=== PATIENT | female | born 1960 | race Caucasian/White ===

== ENCOUNTER 2023-09-25 11:20 | Outpatient (AMB) | payer OTHER, SELFPAY ==
--- NOTE | 2023-09-25 11:36 | A.OFFPC_ITS ---
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: No Allergies No Known Allergies Allergy (Verified 09/25/23 12:20) Medication List - Last Reconciled 09/25/23 by Barbara Carver PA-C atorvastatin 10 mg PO DAILY levothyroxine 50 mcg PO DAILY lisinopril 10 mg PO DAILY Tobacco use date assessed: 09/25/23 Dental Screening Dental Screen Date: 09/25/23 Did you have a dental visit in the last 12 months?: Yes Did you have a dental problem in the last 6 months where you did not have access to dental care?: No Was dental information given to patient?: Patient has dentist HPI Transfer from [facility] HPI Details Patient is a 62-year-old female with a significant past medical history of alcoholism, anxiety, depression, hypothyroidism, hypertension, hyperlipidemia and chronic back pain presenting today for a follow up. She is transferring from [facility]. Psych: She has now been sober for 6 months. She states that she is very active in AA and does not feel like she is at risk for relapse. She states that she knows that is crazy to say out loud but she does not crave alcohol or want alcohol. She states that it feels like a monkey is finally off of her back. 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 She had slowly cut back over the previous year and ultimately went to rehab 6 months ago. She states that her anxiety and depression feel much better. She states she has generalized anxiety and states that she has been an anxious person her whole life. She wonders if she can cut back on the citalopram as she feels much more in control. She states that she is reading, following with her group therapy, and starting to get back into horseback riding. She has also cut back on her business. She states that her relationships with her children are now improving.. Endo: She is on levothyroxine 50 mcg. Her last TSH was WNL. She does wonder if her osteopenia has advanced osteoporosis over the last couple years because she thinks that she has shrunk and height by an inch or 2. CV: Blood pressure today in the office is 118/68. She has been off of her lisinopril 10 mg for the past few weeks and wonders if she needs this at all. She wonders if her blood pressure has gone down with her no longer drinking which I told her is possible. She is still on the atorvastatin 10 mg. No myalgias. Musculoskeletal: Still experiencing thoracic and lumbar pain. No radiation down the legs. It just feels stiff and achy especially when she sits in certain chairs or when she is in a position for a long time. She has not interested in physical therapy but would like x-rays of her back to see how it looks. She would also like to possibly see a chiropractor. Mammogram: Up-to-date at [facility] Pap: Follows with [facility] Colonoscopy: Overdue. Her sister has a history of colon cancer. Bone density: Due this year [facility] Medical History (Updated 09/25/23 @ 14:27 by Barbara Carver PA-C) Family history of colon cancer Thoracic back pain Lumbar pain Generalized anxiety disorder Alcoholism Cataract Heart palpitations Obesity, Class I, BMI 30-34.9 Mitral valve prolapse Hypothyroidism Hyperlipidemia HTN (hypertension) Hand joint pain Hand eczema H/O infectious mononucleosis Fatty liver Fatigue Backache Asthma Anxiety Abnormal glucose level Family History (Updated 09/25/23 @ 11:54 by Mary Merritt CMA) Father Cardiovascular disease Mother Breast cancer Lung cancer Social History (Updated 09/25/23 @ 11:48 by Mary Merritt CMA) Housing: House Patient Tobacco Use Status: Former Tobacco user Cigarette Packs Per Day: 2 Years Smoked: 15 e-Cigarette/Vaping Use: Never Used Substance Use Type: Marijuana service: No Current occupational status: employed 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 1. Little interest or pleasure in doing things: not at all 2. Feeling down, depressed, or hopeless: not at all 3. Trouble falling or staying asleep, or sleeping too much: several days 4. Feeling tired or having little energy: several days 5. Poor appetite or overeating: several days 6. Feeling bad about yourself - or that you are a failure or have let yourself or your family down: not at all 7. Trouble concentrating on things, such as reading the newspaper or watching television: not at all 8. Moving or speaking so slowly that other people could have noticed. Or the opposite - being so fidgety or restless that you have been moving around a lot more than usual: not at all 9. Thoughts that you would be better off or of hurting yourself in some way: not at all Total score: 3 Depression Screening Interpretation: Positive Depression Screening Follow-up: Existing condition, In treatment and Change in Medication Depression Screening Done: Yes 57368 - PHQ-9 Billing: Yes Source: Developed by Drs. Lucas Chang, Fadia Moreau, Richard Reynaga and colleagues, with an educational uma from [employer]. Thrive Questionnaire Date Thrive assessed: 09/25/23 I am a: Patient What is your living situation today?: I have a steady place to live Within the past 12 months, did the food you bought not last and you didn't have the money to get more?: Never true Within the past 12 months, did you worry whether your food would run out before you got money to buy more?: Never true Do you have trouble paying for medicines?: No Do you have trouble getting transportation to medical appointments?: No Do you have trouble paying your heating and electricity bill?: No Do you have trouble taking care of your child, family member or friend?: No Do you have trouble with day-to-day activities such as bathing, preparing meals, shopping, managing finances, etc.?: No Are you currently unemployed and looking for a job?: No Are you interested in more education?: No Please select the resources that you would like help with: None Currently or been in a relationship where the following occur: no concerns reported THRIVE Score: 0 AUDIT C Alcohol Use Questionnaire (AUDIT-C) 1. How often do you have a drink containing alcohol?: Never 3. How often do you have six or more drinks on one occasion?: Never (Sober 6 months) Total Score: 0 DARIUSZ-7 AMB Questionnaire DARIUSZ-7 Date DARIUSZ - 7 assessed: 09/25/23 Feeling nervous, anxious, or on edge: 1 = Several days Not being able to stop or control worryin = Not at all Worrying too much about different things: 1 = Several days Trouble relaxin = Several days Being so restless that it is hard to sit still: 1 = Several days Becoming easily annoyed or irritable: 0 = Not at all Feeling afraid as if something awful might happen: 0 = Not at all Total DARIUSZ-7 score (0-4 normal; 5-9 mild; 10-14 moderate; 15-21 severe): 4 Source: Developed by Drs. Lucas Chang, Fadia Moreau, Richard Reynaga and colleagues, with an educational uma from [employer]. DARIUSZ-7 Assessment Billing DARIUSZ-7 Assessment Tool: DARIUSZ-7 Assessment 28491 Physical exam (Primary Care) Vital Signs: Last Vital Signs Temp 98.1 F 09/25/23 11:48 Pulse 67 09/25/23 11:48 Resp 14 09/25/23 11:48 BP 118/64 09/25/23 11:48 Pulse Ox 97 09/25/23 11:48 Oxygen Delivery Method Room Air 09/25/23 11:48 BMI result Body Mass Index 37.6 Tobacco/Smoking Status: Tobacco use Status Tobacco use date assessed 09/25/23 09/25/23 11:47 Patient Tobacco Use Status Former Tobacco user 09/25/23 11:47 e-Cigarette/Vaping Use Never Used 09/25/23 11:47 PHQ-9: PHQ-9 Score PHQ-9: Total score 3 09/25/23 11:58 Depression Screening Interpretation: Positive Depression Screening Follow-up: Existing condition, In treatment and Change in Medication Thrive Assessment: Date of Thrive Assessment Date Thrive assessed 09/25/23 09/25/23 11:58 Currently or been in a relationship where the following occur: no concerns reported Const Orientation/consciousness: patient oriented x3 HENMT Ears: hearing grossly normal bilaterally Neck Thyroid: Thyroid normal Lymphatic: no lymphadenopathy noted Resp Auscultation: clear to auscultation bilaterally Cardio Rate: regular rate Rhythm: regular rhythm Heart sounds: S1 normal heart sound present and S2 normal heart sound present GI Inspection: Yes normal to inspection Palpation (GI): Soft to palpation and Other GI palpation findings present (nontender, no cva tenderness) Auscultation: normoactive bowel sounds Rectal Exam - Female: deferred Skin General skin exam: no rashes or lesions noted Neuro General: patient oriented x3, gait normal and no focal motor deficits Assessment and Plan Assessment & Plan (1) Generalized anxiety disorder: Code(s): F41.1 - Generalized anxiety disorder Plan: We will reduce citalopram to 20 mg. Follow up in office in a month to be reassessed. (2) Hypothyroidism: Code(s): E03.9 - Hypothyroidism, unspecified Qualifiers: Hypothyroidism type: acquired Qualified Code(s): E03.9 - Hypothyroidism, unspecified Plan: Continue levothyroxine. We will monitor TSH. (3) Hyperlipidemia: Code(s): E78.5 - Hyperlipidemia, unspecified Qualifiers: Hyperlipidemia type: pure hypercholesterolemia Qualified Code(s): E78.00 - Pure hypercholesterolemia, unspecified Plan: Continue atorvastatin. Labs ordered. We will monitor. (4) Fatty liver: Code(s): K76.0 - Fatty (change of) liver, not elsewhere classified Plan: Ultrasound ordered to recheck. (5) Lumbar pain: Code(s): M54.50 - Low back pain, unspecified Plan: X-rays of the back ordered. We will follow up pending test results. (6) Thoracic back pain: Code(s): M54.6 - Pain in thoracic spine Qualifiers: Chronicity: chronic Back pain laterality: midline Qualified Code(s): M54.6 - Pain in thoracic spine; G89.29 - Other chronic pain Plan: As above Plan We will follow up in a few weeks to recheck blood pressure off of lisinopril and the decreased celexa Orders: Orders TSH reflex Free T4 Today E03.9 - Hypothyroidism, unspecified, E78.5 - Hyperlipidemia, unspecified, F41.1 - Generalized anxiety disorder, K76.0 - Fatty (change of) liver, not elsewhere classified XR DEXA axial skeleton Today Z78.0 - Asymptomatic menopausal state XR lumbar spine 2-3V Today M54.50 - Low back pain, unspecified, M54.6 - Pain in thoracic spine Complete Blood Count Auto Diff Today E03.9 - Hypothyroidism, unspecified, E78.5 - Hyperlipidemia, unspecified, F41.1 - Generalized anxiety disorder, K76.0 - Fatty (change of) liver, not elsewhere classified Comprehensive Met. Panel Today E03.9 - Hypothyroidism, unspecified, E78.5 - Hyperlipidemia, unspecified, F41.1 - Generalized anxiety disorder, K76.0 - Fatty (change of) liver, not elsewhere classified Lipid Panel Today E03.9 - Hypothyroidism, unspecified, E78.5 - Hyperlipidemia, unspecified, F41.1 - Generalized anxiety disorder, K76.0 - Fatty (change of) li billy, not elsewhere classified XR thoracic spine 2V Today M54.50 - Low back pain, unspecified, M54.6 - Pain in thoracic spine US abdomen limited Today K76.0 - Fatty (change of) liver, not elsewhere classified Referrals Gastroenterology Referral Z12.11 - Encounter for screening for malignant neoplasm of colon, Z80.0 - Family history of malignant neoplasm of digestive organs Medications: New citalopram 20 mg PO DAILY 90 tabs 3RF Coding Level of Care Code Est Pt Level 4 (47112) Complex EM visit Add On G2211 Diagnoses Generalized anxiety disorder F41.1 Acquired hypothyroidism E03.9 Hypothyroidism type: acquired Pure hypercholesterolemia E78.00 Hyperlipidemia type: pure hypercholesterolemia Fatty liver K76.0 Lumbar pain M54.50 Chronic midline thoracic back pain M54.6; G89.29 Chronicity: chronic Back pain laterality: midline Additional Codes DARIUSZ-7 Assessment Billing - DARIUSZ-7 Assessment Tool: DARIUSZ-7 Assessment [id number] ([id number])
[2023-09-25 11:48] VITALS: BP 118/64; PULSE 67; RESP 14; TEMP 36.7; O2SAT 97; BMI 37.6
== END 2023-09-25 12:49 | disposition home or self-care (01) ==
PROVIDERS: PCP Physician Assistant; Visit Provider Physician Assistant
DX: E03.9 Hypothyroidism, unspecified (principal); F41.1 Generalized anxiety disorder; E78.00 Pure hypercholesterolemia, unspecified; M54.50 Low back pain, unspecified; K76.0 Fatty (change of) liver, not elsewhere classified; M54.6 Pain in thoracic spine; G89.29 Other chronic pain
CPT/HCPCS: 96127; 99214; G2211

== ENCOUNTER 2023-10-14 10:13 | Outpatient (REF) | payer OTHER, SELFPAY ==
--- NOTE | ~2023-10-14 | XR_ITS ---
EXAMINATION: XR LUMBAR SPINE XR THORACIC SPINE CLINICAL INFORMATION: Patient states no injury, but doctor ordered for checkup due to arthritis and scoliosis. COMPARISON: None available. TECHNIQUE: 3 views of the lumbar spine and 4 views of the thoracic spine. THORACIC SPINE: Diffuse demineralization. S-shaped thoracolumbar scoliosis. Advanced multilevel thoracic spondylosis with multilevel hypertrophic change and loss of disc space height. Degenerative changes on very limited images of the cervical spine could be evaluated with dedicated cervical spine radiographs. LUMBAR SPINE: Diffuse osteopenia. Levoscoliosis of the lumbar spine. Advanced multilevel facet arthritis. Atherosclerotic aortoiliac calcifications. Moderate multilevel lumbar spondylosis with loss of disc space height most notable at L5-S1. Mild grade 1 retrolisthesis of L3 on L4. Mild grade 1 anterolisthesis of L4 and L5. XR/XR lumbar spine 2-3V IMPRESSION: 1. Advanced multilevel thoracic spondylosis. 2. Moderate multilevel lumbar spondylosis most notable at L5-S1. 3. Advanced multilevel facet arthritis. 4. S-shaped thoracolumbar scoliosis.
--- NOTE | ~2023-10-14 | XR_ITS ---
EXAMINATION: XR LUMBAR SPINE XR THORACIC SPINE CLINICAL INFORMATION: Patient states no injury, but doctor ordered for checkup due to arthritis and scoliosis. COMPARISON: None available. TECHNIQUE: 3 views of the lumbar spine and 4 views of the thoracic spine. THORACIC SPINE: Diffuse demineralization. S-shaped thoracolumbar scoliosis. Advanced multilevel thoracic spondylosis with multilevel hypertrophic change and loss of disc space height. Degenerative changes on very limited images of the cervical spine could be evaluated with dedicated cervical spine radiographs. LUMBAR SPINE: Diffuse osteopenia. Levoscoliosis of the lumbar spine. Advanced multilevel facet arthritis. Atherosclerotic aortoiliac calcifications. Moderate multilevel lumbar spondylosis with loss of disc space height most notable at L5-S1. Mild grade 1 retrolisthesis of L3 on L4. Mild grade 1 anterolisthesis of L4 and L5. XR/XR thoracic spine 2V IMPRESSION: 1. Advanced multilevel thoracic spondylosis. 2. Moderate multilevel lumbar spondylosis most notable at L5-S1. 3. Advanced multilevel facet arthritis. 4. S-shaped thoracolumbar scoliosis.
--- NOTE | ~2023-10-14 | US_ITS ---
EXAMINATION: US ABDOMEN LIMITED CLINICAL INFORMATION: Fatty (change of) liver, not elsewhere classified. COMPARISON: None available. TECHNIQUE: Real-time imaging of the right upper quadrant abdominal viscera. FINDINGS: PANCREAS: Normal. LIVER: Normal. The liver is normal in size. The liver contour is normal. Parenchymal echogenicity is normal. No focal hepatic lesion. There is no intrahepatic biliary duct dilatation seen. GALLBLADDER: Normal. The gallbladder is physiologically distended without evidence of stones, sludge, polyps, wall thickening or pericholecystic fluid. COMMON BILE DUCT: Normal in caliber measuring 0.5 cm in diameter. RIGHT KIDNEY: Normal. No hydronephrosis. No renal calculi or focal parenchymal lesions. The kidney measures 11.1 cm in maximum dimension. FREE FLUID: None. US/US abdomen limited IMPRESSION: Unremarkable abdominal ultrasound.
[2023-10-14 11:43] LABS: MANUAL DIFF FLAG NO
[2023-10-14 11:58] LABS: Basophils Absolute Auto 0.1 X10*3/uL (0.0-0.2); Basophils Percent Auto 0.8 % (0-2); Eosinophils Absolute Auto 0.1 X10*3/uL (0.0-0.4); Eosinophils Percent Auto 2.2 % (0-4); Hematocrit 40.8 % (37.0-47.0); Hemoglobin 13.7 g/dl (12.0-16.0); Imm Gran Abs Auto 0.02 X10*3/uL (0.00-0.03); Imm Gran Pct Auto 0.3 % (0.0-0.4); Lymphocytes Absolute Auto 1.8 X10*3/uL (1.2-4.9); Lymphocytes Percent Auto 29.6 % (20-40); Mean Corpuscular HGB Conc 33.6 g/dl (31.0-35.0); Mean Corpuscular Hemoglobin 30.3 pg (27.0-33.0); Mean Corpuscular Volume 90.3 fL (80.0-98.0); Mean Platelet Volume 9.2 fL (9.4-12.3); Monocytes Absolute Auto 0.4 X10*3/uL (0.1-1.2); Neutrophils Absolute Auto 3.6 x10*3/uL (2.0-8.3); Neutrophils Percent Auto 60.1 % (45-73); Platelet Count 387 X10*3/uL (160-400); Red Blood Count 4.52 X10*6/uL (4.20-5.50)
[2023-10-14 12:52] LABS: Alanine Aminotransferase 15 U/L (0-31); Albumin Level 4.2 g/dL (3.5-5.0); Alkaline Phosphatase 91 U/L (39-117); Anion Gap 10 (12-20); Aspartate Amino Transferase 16 U/L (5-31); Bilirubin Total 0.3 mg/dL (0.0-1.0); Blood Urea Nitrogen 11 mg/dL (9-16); Calcium 9.4 mg/dL (8.4-10.2); Carbon Dioxide 28 mmol/L (22-29); Chloride 106 mmol/L (96-108); Cholesterol 240 mg/dL (<200); Estimated Glomerular Filt Rate > 60; Glucose Random 98 mg/dL (60-115); HDL Cholesterol 63 mg/dL (>40); LDL Cholesterol Calculated 163 mg/dL (<100); Potassium 4.1 mmol/L (3.3-5.1); Sodium 140 mmol/L (135-145); Total Protein 6.8 g/dL (6.5-8.0); Triglycerides 71 mg/dL (<150)
== END 2023-10-14 10:14 | disposition home or self-care (01) ==
LOC: HO.US 10:13
PROVIDERS: PCP Physician Assistant; Visit Provider Physician Assistant
DX: M54.6 Pain in thoracic spine (principal); M54.50 Low back pain, unspecified; K76.0 Fatty (change of) liver, not elsewhere classified; E78.5 Hyperlipidemia, unspecified; E03.9 Hypothyroidism, unspecified; F41.1 Generalized anxiety disorder
CPT/HCPCS: 36415; 72070; 72100; 76705; 80053; 80061; 84443; 85025

== ENCOUNTER 2023-10-16 10:53 | Outpatient (AMB) | payer OTHER, SELFPAY ==
--- NOTE | 2023-10-16 11:00 | MHC.PC.OV ---
Vital Signs 10/16/23 11:02 Height 4 ft 11.29 in Weight 185 lb 6 oz BMI 37.1 BP 116/66 Blood Pressure Location Lt brachial Position Sitting Pulse 83 Pulse Source Pulse Oximeter Temp 97.6 F Temp Source Oral Pulse Oximetry (%) 98 Oxygen Delivery Method Room Air Intake Visit Reasons: bp and anxiety Intake Note: Blood pressure and anxiety Allergies No Known Allergies Allergy (Verified 09/25/23 12:20) Medication List - Last Reconciled 10/16/23 by Barbara Carver PA-C atorvastatin 20 mg PO BEDTIME citalopram 20 mg PO DAILY levothyroxine 50 mcg PO DAILY Tobacco use date assessed: 09/25/23 Dental Screening Dental Screen Date: 09/25/23 HPI bp and anxiety HPI Details Patient is a 62-year-old female who presents today for a follow up. CV: Blood pressure today in the office is 116/66. She has now been off of lisinopril for over a month. She is 7 months sober. Blood pressures have been normal. Her last cholesterol from 2 days ago did come back elevated. I increased her atorvastatin to 20 mg. She tells me today that she can do better with her diet. Psych: At our last visit she wanted to cut back on her Celexa but she tells me that she never did this. She states that after discussing this with her family and friends she does feel that it is likely reasonable to stay on this medication as her life is now starting to get back to ?normal?. She is 7 months sober. Follows with AA. No SI/HI. Overall is feeling a lot happier. 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 She has been working in gardening more. Musculoskeletal: She did have imaging of her back however, results are still pending. She uses ibuprofen intermittently for pain. She wonders if she could have rheumatoid arthritis because her joints feel very stiff. No family history of this. She is outside a lot. No known tick bites. [facility] Medical History (Updated 10/16/23 @ 11:35 by Barbara Carver PA-C) Polyarthralgia Family history of colon cancer Thoracic back pain Lumbar pain Generalized anxiety disorder Alcoholism Cataract Heart palpitations Obesity, Class I, BMI 30-34.9 Mitral valve prolapse Hypothyroidism Hyperlipidemia HTN (hypertension) Hand joint pain Hand eczema H/O infectious mononucleosis Fatty liver Fatigue Backache Asthma Anxiety Abnormal glucose level Family History (Updated 09/25/23 @ 11:54 by Mary Merritt CMA) Father Cardiovascular disease Mother Breast cancer Lung cancer Social History (Updated 09/25/23 @ 11:48 by Mary Merritt CMA) Housing: House Patient Tobacco Use Status: Former Tobacco user Cigarette Packs Per Day: 2 Years Smoked: 15 e-Cigarette/Vaping Use: Never Used Substance Use Type: Marijuana service: No Current occupational status: employed 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/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: Yes (Animal 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) Cognitive needs: No Hearing needs: Yes (hearing is off) Vision needs: No Questionnaire Thrive Questionnaire Date Thrive assessed: 09/25/23 DARIUSZ-7 AMB Questionnaire DARIUSZ-7 Date DARIUSZ - 7 assessed: 10/16/23 Feeling nervous, anxious, or on edge: 2 = More than half the days Not being able to stop or control worryin = Several days Worrying too much about different things: 1 = Several days Trouble relaxin = Nearly every day Being so restless that it is hard to sit still: 3 = Nearly every day Becoming easily annoyed or irritable: 1 = Several days Feeling afraid as if something awful might happen: 0 = Not at all Total DARIUSZ-7 score (0-4 normal; 5-9 mild; 10-14 moderate; 15-21 severe): 11 Source: Developed by Drs. Lucas Chang, Fadia Moreau, Richard Reynaga and colleagues, with an educational uma from [employer]. DARIUSZ-7 Assessment Billing DARIUSZ-7 Assessment Tool: DARIUSZ-7 Assessment 54177 Physical exam (Primary Care) Vital Signs: Last Vital Signs Temp 97.6 F 10/16/23 11:02 Pulse 83 10/16/23 11:02 BP 116/66 10/16/23 11:02 Pulse Ox 98 10/16/23 11:02 Oxygen Delivery Method Room Air 10/16/23 11:02 BMI result Body Mass Index 37.1 Tobacco/Smoking Status: Tobacco use Status Tobacco use date assessed 09/25/23 10/16/23 11:07 Patient Tobacco Use Status Former Tobacco user 10/16/23 11:07 e-Cigarette/Vaping Use Never Used 10/16/23 11:07 Thrive Assessment: Date of Thrive Assessment Date Thrive assessed 09/25/23 10/16/23 11:07 Const Orientation/consciousness: patient oriented x3 HENMT Ears: hearing grossly normal bilaterally Neck Thyroid: Thyroid normal Lymphatic: no lymphadenopathy noted Resp Auscultation: clear to auscultation bilaterally Cardio Rate: regular rate Rhythm: regular rhythm Heart sounds: S1 normal heart sound present and S2 normal heart sound present GI Inspection: Yes normal to inspection Palpation (GI): Soft to palpation and Other GI palpation findings present (nontender, no cva tenderness) Auscultation: normoactive bowel sounds Skin General skin exam: no rashes or lesions noted Neuro General: patient oriented x3, gait normal and no focal motor deficits Results Reviewed Results Reviewed: Laboratory Tests 10/14/23 11:41 WBC 6.0 RBC 4.52 Hgb 13.7 Hct 40.8 Plt Count 387 Sodium 140 Potassium 4.1 Creatinine 0.74 Estimated GFR > 60 Random Glucose 98 Calcium 9.4 AST 16 ALT 15 Alkaline Phosphatase 91 Triglycerides 71 Cholesterol 240 H LDL Cholesterol, Calc 163 H HDL Cholesterol 63 TSH 1.80 Assessment and Plan Assessment & Plan (1) Hyperlipidemia: Code(s): E78.5 - Hyperlipidemia, unspecified Qualifiers: Hyperlipidemia type: pure hypercholesterolemia Qualified Code(s): E78.00 - Pure hypercholesterolemia, unspecified Plan: Increased Lipitor. We will recheck labs in 6 months. Discussed low-fat diet. (2) Hypothyroidism: Code(s): E03.9 - Hypothyroidism, unspecified Qualifiers: Hypothyroidism type: acquired Qualified Code(s): E03.9 - Hypothyroidism, unspecified Plan: TSH WNL. Continue current regimen of levothyroxine 50 mcg. (3) Generalized anxiety disorder: Code(s): F41.1 - Generalized anxiety disorder Plan: Continue Celexa 20 mg. (4) Polyarthralgia: Code(s): M25.50 - Pain in unspecified joint Plan: Labs ordered. We will follow up pending test results and x-rays. Advised to use naproxen as needed. Orders: Orders Erythrocyte Sedimentation Rate Today M25.50 - Pain in unspecified joint Lyme IgG/IgM w/reflex to WB Today M25.50 - Pain in unspecified joint Rheumatoid Factor Today M25.50 - Pain in unspecified joint DINORA Reflex Titer and Pattern Today M25.50 - Pain in unspecified joint C Reactive Protein Today M25.50 - Pain in unspecified joint Coding Level of Care Code Est Pt Level 4 (01556) Complex EM visit Add On G2211 Diagnoses Pure hypercholesterolemia E78.00 Hyperlipidemia type: pure hypercholesterolemia Acquired hypothyroidism E03.9 Hypothyroidism type: acquired Generalized anxiety disorder F41.1 Polyarthralgia M25.50 Additional Codes DARIUSZ-7 Assessment Billing - DARIUSZ-7 Assessment Tool: DARIUSZ-7 Assessment [id number] ([id number])
[2023-10-16 11:02] VITALS: BP 116/66; PULSE 83; TEMP 36.4; O2SAT 98; BMI 37.1
== END 2023-10-16 11:47 | disposition home or self-care (01) ==
PROVIDERS: PCP Physician Assistant; Visit Provider Physician Assistant
DX: E78.00 Pure hypercholesterolemia, unspecified (principal); E03.9 Hypothyroidism, unspecified; F41.1 Generalized anxiety disorder; M25.50 Pain in unspecified joint
CPT/HCPCS: 99214; G2211

== ENCOUNTER 2023-10-16 11:50 | Outpatient (REF) | payer OTHER, SELFPAY ==
[2023-10-16 14:57] LABS: C Reactive Protein 0.16 mg/dL (< or = 0.50)
[2023-10-16 15:00] LABS: Rheumatoid Factor < 13.0 IU/mL (<15.0)
[2023-10-16 15:27] LABS: Erythrocyte Sedimentation Rate 16 MM/HR (0-20)
[2023-10-18 01:09] LABS: Lyme Abs Screen <0.90 index
[2023-10-20 14:53] LABS: Anti Nuclear Antibody Screen NEGATIVE (NEGATIVE)
== END 2023-10-16 11:51 | disposition home or self-care (01) ==
LOC: HO.WFDLDS 11:50
PROVIDERS: Visit Provider Physician Assistant
DX: M25.50 Pain in unspecified joint (principal)
CPT/HCPCS: 36415; 85652; 86038; 86140; 86431; 86617; 86618

== ENCOUNTER 2023-10-29 13:17 | Outpatient (REF) | payer OTHER, SELFPAY ==
--- NOTE | ~2023-10-29 | MM_ITS ---
EXAMINATION: BONE DENSITOMETRY CLINICAL INDICATION: Menopause. COMPARISON: This is the patient's baseline examination. TECHNIQUE: Using a [employer] DXA System (software version: 13.1) manufactured by [employer], dual-energy x-ray absorptiometry was performed of the lumbar spine and left hip. The images are of good technical quality. Summary results are attached. FINDINGS: LEFT FEMUR, NECK: BMD 0.875 g/cm2, Z-score -0.2, T-score -1.2, osteopenia. LEFT FEMUR, TOTAL: BMD 0.963 g/cm2, Z-score 0.3, T-score -0.4, normal. AP SPINE L1-L4: BMD 1.380 g/cm2, Z-score 2.5, T-score 1.7, normal. IDENTIFIED RISK FACTORS: Menopause, history of fracture (adult), alcohol (3 or more units per day). HISTORY OF FRACTURE: Other. MEDICATIONS: Calcium, multivitamin. MM/XR DEXA axial skeleton IMPRESSION: 1. DIAGNOSIS: Osteopenia based on the lowest T-score value of -1.2 in the femoral neck applying World Health Organization criteria. 2. 10-YEAR FRACTURE RISK PREDICTION, FRAX: Major osteoporotic fracture (clinical spine, forearm, hip or shoulder) 14.5%. Hip fracture 1.3%. 3. Treatment Recommendations: NOF guidelines recommend consideration for treatment in postmenopausal women and men age 50 and older presenting with the following: -A hip or vertebral (clinical or morphometric) fracture. -T-score less than or equal to -2.5 at the femoral neck or spine after appropriate evaluation to exclude secondary causes. -Low bone mass at the hip or spine and a 10-year fracture probability by FRAX of greater than or equal to 3% for hip fracture or greater than or equal to 20% for major osteoporotic fracture based on the [place] adapted WHO algorithm. 4. Other Recommendations: All treatment decisions require clinical judgment and consideration of individual patient factors, including patient preferences, comorbidities, previous drug use, risk factors not captured in the FRAX model (e.g. frailty, falls, vitamin D deficiency, increased bone turnover, interval significant decline in bone density) and possible under or overestimation of fracture risk by FRAX. Additional medical evaluation for secondary cause of low bone mineral density may be appropriate. FUTURE SCAN RECOMMENDATION: People with diagnosed cases of osteoporosis or at high risk for fracture should have regular bone mineral density tests. For patients eligible for Medicare, routine testing is allowed once every 2 years. The testing frequency can be increased to one year for patients who have rapidly progressing disease, those who are receiving or discontinuing medical therapy to restore bone mass, or have additional risk factors.
== END 2023-10-29 13:18 | disposition home or self-care (01) ==
LOC: HO.MAMMO 13:17
PROVIDERS: PCP Physician Assistant; Visit Provider Physician Assistant
DX: Z13.820 Encounter for screening for osteoporosis (principal); Z78.0 Asymptomatic menopausal state
CPT/HCPCS: 77080

== ENCOUNTER 2023-12-05 16:08 | Outpatient (AMB) | payer OTHER, SELFPAY ==
--- NOTE | 2023-12-05 16:08 | MHC.PC.OV ---
Intake Visit Reasons: lab results Intake Note: lab result review Allergies No Known Allergies Allergy (Verified 12/05/23 16:10) Tobacco use date assessed: 12/05/23 Dental Screening Dental Screen Date: 09/25/23 HPI lab results HPI Details Patient is a 63-year-old female who presents today for a follow up. Psych: Doing well with the citalopram 20 mg. No SI/HI. Doing well CV: Blood pressure at home has been normal since stopping the lisinopril. She is on atorvastatin 20 mg for cholesterol control. Endo: Last TSH WNL. On levothyroxine 50 mcg. Musculoskeletal: back is doing better with otc ibuprofen intermittently. [facility] Medical History (Updated 12/05/23 @ 16:15 by Barbara Carver PA-C) Polyarthralgia Family history of colon cancer Thoracic back pain Lumbar pain Generalized anxiety disorder Alcoholism Cataract Heart palpitations Obesity, Class I, BMI 30-34.9 Mitral valve prolapse Hypothyroidism Hyperlipidemia HTN (hypertension) Hand joint pain Hand eczema H/O infectious mononucleosis Fatty liver Fatigue Backache Asthma Anxiety Abnormal glucose level Family History (Updated 09/25/23 @ 11:54 by Mary Merritt CMA) Father Cardiovascular disease Mother Breast cancer Lung cancer Social History (Updated 09/25/23 @ 11:48 by Mary Merritt CMA) Housing: House Patient Tobacco Use Status: Former Tobacco user Cigarette Packs Per Day: 2 Years Smoked: 15 e-Cigarette/Vaping Use: Never Used Substance Use Type: Marijuana service: No Current occupational status: employed 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 Lucas Chang, Fadia Moreau, Richard Reynaga and colleagues, with an educational uma from [employer]. Physical exam (Primary Care) Tobacco/Smoking Status: Tobacco use Status Tobacco use date assessed 09/25/23 10/16/23 11:07 Patient Tobacco Use Status Former Tobacco user 10/16/23 11:07 e-Cigarette/Vaping Use Never Used 10/16/23 11:07 Thrive Assessment: Date of Thrive Assessment Date Thrive assessed 09/25/23 10/16/23 11:07 Telehealth Telehealth Telehealth Platform: Telephone Location of provider rendering services: practice address Location of patient: address on file Patient Identification confirmed using: Name, : Yes Telehealth method: voice only Patient verbally consented to treatment: Yes Patient verbally consented to billing insurance company: Yes Patient informed of any privacy concerns related to visit: Yes Minutes spent on Phone/Video with Pt.: 22 Results Reviewed Results Reviewed: MM/XR DEXA axial skeleton IMPRESSION: 1. DIAGNOSIS: Osteopenia based on the lowest T-score value of -1.2 in the femoral neck applying World Health Organization criteria. 2. 10-YEAR FRACTURE RISK PREDICTION, FRAX: Major osteoporotic fracture (clinical spine, forearm, hip or shoulder) 14.5%. Hip fracture 1.3%. XR/XR thoracic spine 2V IMPRESSION: 1. Advanced multilevel thoracic spondylosis. 2. Moderate multilevel lumbar spondylosis most notable at L5-S1. 3. Advanced multilevel facet arthritis. 4. S-shaped thoracolumbar scoliosis. Laboratory Tests 10/14/23 10/16/23 11:41 11:52 Creatinine 0.74 Estimated GFR > 60 Random Glucose 98 AST 16 ALT 15 Triglycerides 71 Cholesterol 240 H LDL Cholesterol, Calc 163 H HDL Cholesterol 63 TSH 1.80 Rheumatoid Factor < 13.0 DINORA Screen NEGATIVE Assessment and Plan Assessment & Plan (1) Hypothyroidism: Code(s): E03.9 - Hypothyroidism, unspecified Qualifiers: Hypothyroidism type: acquired Qualified Code(s): E03.9 - Hypothyroidism, unspecified Plan: last tsh wnl (2) Generalized anxiety disorder: Code(s): F41.1 - Generalized anxiety disorder Plan: doing well with celexa (3) Lumbar pain: Code(s): M54.50 - Low back pain, unspecified Plan: improved with otc meds (4) Hyperlipidemia: Code(s): E78.5 - Hyperlipidemia, unspecified Qualifiers: Hyperlipidemia type: pure hypercholesterolemia Qualified Code(s): E78.00 - Pure hypercholesterolemia, unspecified Plan: will recheck labs in 6 months. tolerating increased dosage. Orders: Orders Lipid Panel Today E78.00 - Pure hypercholesterolemia, unspecified Comprehensive [place]. Panel Fast Today E78.00 - Pure hypercholesterolemia, unspecified Coding Level of Care Code Tele Est Pt Level 3 (10938) Diagnoses Acquired hypothyroidism E03.9 Hypothyroidism type: acquired Generalized anxiety disorder F41.1 Lumbar pain M54.50 Pure hypercholesterolemia E78.00 Hyperlipidemia type: pure hypercholesterolemia Time Spent (min) 22
== END 2023-12-05 16:17 | disposition home or self-care (01) ==
LOC: HO.HMGFM 16:08
PROVIDERS: PCP Physician Assistant; Visit Provider Physician Assistant
DX: E03.9 Hypothyroidism, unspecified (principal); F41.1 Generalized anxiety disorder; M54.50 Low back pain, unspecified; E78.00 Pure hypercholesterolemia, unspecified
CPT/HCPCS: 99213

== ENCOUNTER 2024-04-22 08:55 | Outpatient (AMB) | payer OTHER, SELFPAY ==
--- NOTE | 2024-04-22 09:07 | MHC.PC.OV ---
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 Psych: She does complain today of symptoms of ADHD. She says that she has had this for many years and she knows that she was diagnosed ADD and thinks that this maybe the root cause of her alcoholism. She wants to treat this. Feels like her mind races a lot and she just has a very hard time sitting still her staying still. She is still on Celexa which she finds helpful. No SI/HI. She is trying to work on herself and be able to move forward in life with her children and grandchildren. She is going to AA 5 times a week. CV: Blood pressure today in the office is 124/74. Doing well with the atorvastatin 20 mg. Endo: Last TSH was WNL. Levothyroxine doses 50 mcg daily. Goes to the dentist a few times a year. Up-to-date with Ophthalmology. Mammo-overdue Pap-overdue Bone density- UTD- osteopenia Colonoscopy-was referred but never heard [facility] Medical History (Updated 04/22/24 @ 09:49 by Barbara Carver PA-C) Polyarthralgia Family history of colon cancer Thoracic back pain Lumbar pain Generalized anxiety disorder Alcoholism Cataract Heart palpitations Obesity, Class I, BMI 30-34.9 Mitral valve prolapse Hypothyroidism Hyperlipidemia HTN (hypertension) Hand joint pain Hand eczema H/O infectious mononucleosis Fatty liver Fatigue Backache Asthma Anxiety Abnormal glucose level Family History Father Cardiovascular disease Mother Breast cancer Lung cancer Social History (Updated 04/22/24 @ 09:11 by MEGHA Maynard Housing: House Alcohol intake: former Comment: More then a year sober Patient Tobacco Use Status: Former Tobacco user Cigarette Packs Per Day: 2 Years Smoked: 15 e-Cigarette/Vaping Use: Never Used Substance Use Type: Marijuana service: No Current occupational status: employed 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 1. Little interest or pleasure in doing things: not at all 2. Feeling down, depressed, or hopeless: not at all 3. Trouble falling or staying asleep, or sleeping too much: not at all 4. Feeling tired or having little energy: several days 5. Poor appetite or overeating: several days 6. Feeling bad about yourself - or that you are a failure or have let yourself or your family down: not at all 7. Trouble concentrating on things, such as reading the newspaper or watching television: more than half the days 8. Moving or speaking so slowly that other people could have noticed. Or the opposite - being so fidgety or restless that you have been moving around a lot more than usual: several days 9. Thoughts that you would be better off or of hurting yourself in some way: not at all Total score: 5 Depression Screening Interpretation: Positive Depression Screening Done: Yes 29466 - PHQ-9 Billing: Yes Source: Developed by Drs. Lucas Chang, Fadia Moreau, Richard Reynaga and colleagues, with an educational uma from [employer]. Thrive Questionnaire Date Thrive assessed: 09/25/23 I am a: Patient What is your living situation today?: I have a steady place to live Within the past 12 months, did the food you bought not last and you didn't have the money to get more?: Never true Within the past 12 months, did you worry whether your food would run out before you got money to buy more?: Never true Do you have trouble paying for medicines?: No Do you have trouble getting transportation to medical appointments?: No Do you have trouble paying your heating and electricity bill?: No Do you have trouble taking care of your child, family member or friend?: No Do you have trouble with day-to-day activities such as bathing, preparing meals, shopping, managing finances, etc.?: No Are you currently unemployed and looking for a job?: No Are you interested in more education?: No Please select the resources that you would like help with: None Currently or been in a relationship where the following occur: No concerns reported THRIVE Score: 0 AUDIT C Alcohol Use Questionnaire (AUDIT-C) 1. How often do you have a drink containing alcohol?: Never Total Score: 0 DARIUSZ-7 AMB Questionnaire DARIUSZ-7 Date DARIUSZ - 7 assessed: 10/16/23 Feeling nervous, anxious, or on edge: 2 = More than half the days Not being able to stop or control worryin = Several days Worrying too much about different things: 1 = Several days Trouble relaxin = Several days Being so restless that it is hard to sit still: 2 = More than half the days Becoming easily annoyed or irritable: 2 = More than half the days Feeling afraid as if something awful might happen: 0 = Not at all Total DARIUSZ-7 score (0-4 normal; 5-9 mild; 10-14 moderate; 15-21 severe): 9 Source: Developed by Drs. Lucas Chang, Fadia Moreau, Richard Reynaga and colleagues, with an educational uma from [employer]. DARIUSZ-7 Assessment Billing DARIUSZ-7 Assessment Tool: DARIUSZ-7 Assessment 57451 Physical exam (Primary Care) Vital Signs: Last Vital Signs Pulse 62 04/22/24 09:11 BP 124/74 04/22/24 09:11 Pulse Ox 95 04/22/24 09:11 Oxygen Delivery Method Room Air 04/22/24 09:11 BMI result Body Mass Index 38.1 Tobacco/Smoking Status: Tobacco use Status Tobacco use date assessed 04/22/24 04/22/24 09:14 Patient Tobacco Use Status Former Tobacco user 04/22/24 09:11 e-Cigarette/Vaping Use Never Used 04/22/24 09:11 PHQ-9: PHQ-9 Score PHQ-9: Total score 5 04/22/24 09:35 Depression Screening Interpretation: Positive Thrive Assessment: Date of Thrive Assessment Date Thrive assessed 09/25/23 04/22/24 09:10 Currently or been in a relationship where the following occur: No concerns reported Const Orientation/consciousness: patient oriented x3 HENMT Ears: hearing grossly normal bilaterally and TM's normal bilaterally General nose exam: No nasal polyps present Face and sinus: Yes sinuses nontender Mouth: Normal oral and palatal mucosa present Eyes Pupils: Equal, round and reactive pupils present EOM: EOMs intact bilaterally Neck Neck: Yes full ROM and Yes no lymphadenopathy Thyroid: Thyroid normal Chest Chest palpation & inspection: normal inspection of the chest Resp Auscultation: clear to auscultation bilaterally Cardio Rate: regular rate Rhythm: regular rhythm Heart sounds: S1 normal heart sound present and S2 normal heart sound present Peripheral pulses: Peripheral pulses 2+ throughout GI Other: Soft, nontender Auscultation: normal bowel sounds Rectal Exam - Female: deferred General: Yes no CVA tenderness Back/Spine/Pelvis Other: Nontender Back: no CVA tenderness Skin General skin exam: no rashes or lesions noted Neuro General: patient oriented x3, gait normal, CN's II-XI intact bilaterally and deep tendon reflexes 2+ bilaterally Cranial nerves: Yes Equal, round and reactive pupils present Motor exam (neuro): 5/5 motor strength present throughout Sensory Exam: double simultaneous stimulation for sensation normal Coordination: [id number] test normal and Romberg test negative Extrem General: Yes normal to inspection and Yes full ROM Psych Affect: normal affect Attitude: cooperative Thought process: Normal thought process present Thought content: Normal thought content present Insight: Good insight present (Psych) Judgement: Good judgement present (Psych) Coding Level of Care Code Est Pt Prev Care 40-64y(35034) Diagnoses Routine general medical examination at a health care facility Z00.00 Generalized anxiety disorder F41.1 Difficulty concentrating R41.840 Pure hypercholesterolemia E78.00 Hyperlipidemia type: pure hypercholesterolemia Acquired hypothyroidism E03.9 Hypothyroidism type: acquired Additional Codes DARIUSZ-7 Assessment Billing - DARIUSZ-7 Assessment Tool: DARIUSZ-7 Assessment 62783 ([id number]) PHQ-9 - 61214 - PHQ-9 Billing: Yes ([id number]) Assessment & Plan Assessment & Plan (1) Routine general medical examination at a health care facility: Code(s): Z00.00 - Encounter for general adult medical examination without abnormal findings Plan: Health maintenance reviewed. Labs ordered. Colonoscopy ordered. Mammogram ordered. Referral to Gynecology. (2) Generalized anxiety disorder: Code(s): F41.1 - Generalized anxiety disorder Category: Medical Plan: Continue Celexa. (3) Difficulty concentrating: Code(s): R41.840 - Attention and concentration deficit Category: Medical Plan: We will try Wellbutrin. Discussed risks and benefits and adverse effects of this medication. Referral to the [facility] center. (4) Hyperlipidemia: Code(s): E78.5 - Hyperlipidemia, unspecified Category: Medical Qualifiers: Hyperlipidemia type: pure hypercholesterolemia Qualified Code(s): E78.00 - Pure hypercholesterolemia, unspecified Plan: Continue atorvastatin. Lipids and LFTs ordered. We will follow up pending test results. (5) Hypothyroidism: Code(s): E03.9 - Hypothyroidism, unspecified Category: Medical Qualifiers: Hypothyroidism type: acquired Qualified Code(s): E03.9 - Hypothyroidism, unspecified Plan: We will monitor TSH. Orders: Orders Hemoglobin A1c Today E03.9 - Hypothyroidism, unspecified, E78.00 - Pure hypercholesterolemia, unspecified, F41.1 - Generalized anxiety disorder, R41.840 - Attention and concentration deficit, Z00.00 - Encounter for general adult medical examination without abnormal findings UA CC w/rflx Micro + Cult Today E03.9 - Hypothyroidism, unspecified, E78.00 - Pure hypercholesterolemia, unspecified, F41.1 - Generalized anxiety disorder, R41.840 - Attention and concentration deficit, Z00.00 - Encounter for general adult medical examination without abnormal findings, Z13.220 - Encounter for screening for lipoid disorders Comprehensive [place]. Panel Fast Today E03.9 - Hypothyroidism, unspecified, E78.00 - Pure hypercholesterolemia, unspecified, F41.1 - Generalized anxiety disorder, R41.840 - Attention and concentration deficit, Z00.00 - Encounter for general adult medical examination without abnormal findings Liver Panel Today E03.9 - Hypothyroidism, unspecified, E78.00 - Pure hypercholesterolemia, unspecified, F41.1 - Generalized anxiety disorder, R41.840 - Attention and concentration deficit, Z00.00 - Encounter for general adult medical examination without abnormal findings TSH reflex Free T4 Today E03.9 - Hypothyroidism, unspecified, E78.00 - Pure hypercholesterolemia, unspecified, F41.1 - Generalized anxiety disorder, R41.840 - Attention and concentration deficit, Z00.00 - Encounter for general adult medical examination without abnormal findings Referrals Behavioral Health Referral F41.1 - Generalized anxiety disorder, R41.840 - Attention and concentration deficit Open Access Screening Colonoscopy Referral Z12.11 - Encounter for screening for malignant neoplasm of colon PHYSICAL CHEMIST Referral Z01.419 - Encounter for gynecological examination (general) (routine) without abnormal findings Medications: New bupropion HCl XL (Wellbutrin XL) 150 mg PO QAM 90 tabs 1RF
[2024-04-22 09:11] VITALS: BP 124/74; PULSE 62; O2SAT 95; BMI 38.1
== END 2024-04-22 11:12 | disposition home or self-care (01) ==
PROVIDERS: PCP Physician Assistant; Visit Provider Physician Assistant
DX: Z00.00 Encounter for general adult medical examination without abnormal findings (principal); F41.1 Generalized anxiety disorder; R41.840 Attention and concentration deficit; E78.00 Pure hypercholesterolemia, unspecified; E03.9 Hypothyroidism, unspecified

== ENCOUNTER 2024-04-22 10:13 | Outpatient (REF) | payer OTHER, SELFPAY ==
[2024-04-22 11:49] LABS: Appearance Urine Clear; Color Urine Yellow; Glucose Urine UA Negative (Negative); Leukocyte Esterase Urine Small (1+) (Negative); Nitrite Urine Negative (Negative); PH 7.5 (5.0-9.0); UMIC TRIGGER UACC YES; Urine Blood Negative (Negative); Urine Ketones Negative (Negative); Urine Protein Negative (Neg-Trace)
[2024-04-22 12:07] LABS: Bacteria Urine None Seen (None Seen); Hyaline Casts Urine 0-2 /LPF (0-2); RBC Urine 0-2 /HPF (0-2); UACC Culture Trigger YES; WBC Urine 0-5 /HPF (0-5)
[2024-04-22 12:13] LABS: Estimated Average Glucose 114 mg/dL; Hemoglobin A1C 128.6379 umol/L; Hemoglobin A1c % 5.6 % (<6.0); Total Hemoglobin (HGBA1C) 3449.1442 umol/L
[2024-04-22 12:51] LABS: Alanine Aminotransferase 20 U/L (0-31); Alkaline Phosphatase 74 U/L (39-117); Anion Gap 8 (12-20); Aspartate Amino Transferase 21 U/L (5-31); Bilirubin Direct 0.2 mg/dL (0.0-0.5); Bilirubin Total 0.4 mg/dL (0.0-1.0); Blood Urea Nitrogen 14 mg/dL (9-16); Calcium 8.8 mg/dL (8.4-10.2); Carbon Dioxide 30 mmol/L (22-29); Chloride 105 mmol/L (96-108); Estimated Glomerular Filt Rate > 60; Glucose Fasting 97 mg/dL (60-99); Sodium 138 mmol/L (135-145); Total Protein 6.6 g/dL (6.5-8.0)
[2024-04-22 13:09] LABS: TSH reflex Free T4 1.21 uIU/mL (0.32-4.0)
== END 2024-04-22 10:14 | disposition home or self-care (01) ==
LOC: HO.WFDLDS 10:13
PROVIDERS: Visit Provider Physician Assistant
DX: Z00.00 Encounter for general adult medical examination without abnormal findings (principal); F41.1 Generalized anxiety disorder; R41.840 Attention and concentration deficit; E78.00 Pure hypercholesterolemia, unspecified; E03.9 Hypothyroidism, unspecified; Z79.899 Other long term (current) drug therapy
CPT/HCPCS: 36415; 80053; 80076; 81001; 82248; 83036; 84443; 87086; 96127

== ENCOUNTER 2024-05-14 13:50 | Outpatient (AMB) | payer OTHER, SELFPAY ==
--- NOTE | 2024-05-14 13:59 | A.OFFPC_ITS ---
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 Psych: At our last visit I did start her on Wellbutrin for her ADHD symptoms. She was also referred to the ADD center. She states that she has not heard from the referral. She is tolerating the Wellbutrin very well and states that it seems very effective for her. She does think that she could increase the dosage. - She does complain today of symptoms of ADHD. She says that she has had this for many years and she knows that she was diagnosed ADD and thinks that this maybe the root cause of her alcoholism. She wants to treat this. Feels like her mind races a lot and she just has a very hard time sitting still her staying still. -She is still on Celexa 40 mg. No SI/HI . She is trying to work on herself and be able to move forward in life with her children and grandchildren. She is going to AA 5 times a week. CV: Blood pressure today in the office is 124/74. Doing well off of any antihypertensives. Doing well with the atorvastatin 20 mg. Endo: Last TSH was WNL. Levothyroxine doses 50 mcg daily. Mammo-ordered Pap-refer Bone density- UTD- osteopenia Colonoscopy-was referred but never heard [facility] Medical History (Updated 04/22/24 @ 09:49 by Barbara Carver PA-C) Polyarthralgia Family history of colon cancer Thoracic back pain Lumbar pain Generalized anxiety disorder Alcoholism Cataract Heart palpitations Obesity, Class I, BMI 30-34.9 Mitral valve prolapse Hypothyroidism Hyperlipidemia HTN (hypertension) Hand joint pain Hand eczema H/O infectious mononucleosis Fatty liver Fatigue Backache Asthma Anxiety Abnormal glucose level Family History Father Cardiovascular disease Mother Breast cancer Lung cancer Social History (Updated 04/22/24 @ 09:11 by Mary Merritt CMA) Housing: House Alcohol intake: former Comment: More then a year sober Patient Tobacco Use Status: Former Tobacco user Cigarette Packs Per Day: 2 Years Smoked: 15 e-Cigarette/Vaping Use: Never Used Substance Use Type: Marijuana service: No Current occupational status: employed 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 1. Little interest or pleasure in doing things: several days 2. Feeling down, depressed, or hopeless: not at all 3. Trouble falling or staying asleep, or sleeping too much: not at all 4. Feeling tired or having little energy: several days 5. Poor appetite or overeating: several days 6. Feeling bad about yourself - or that you are a failure or have let yourself or your family down: several days 7. Trouble concentrating on things, such as reading the newspaper or watching television: several days 8. Moving or speaking so slowly that other people could have noticed. Or the opposite - being so fidgety or restless that you have been moving around a lot more than usual: several days 9. Thoughts that you would be better off or of hurting yourself in some way: not at all Total score: 6 59189 - PHQ-9 Billing: Yes Source: Developed by Drs. Lucas Chang, Fadia Moreau, Richard Reynaga and colleagues, with an educational uma from [employer]. Thrive Questionnaire Date Thrive assessed: 05/14/24 I am a: Patient What is your living situation today?: I have a steady place to live Within the past 12 months, did the food you bought not last and you didn't have the money to get more?: Never true Within the past 12 months, did you worry whether your food would run out before you got money to buy more?: Never true Do you have trouble paying for medicines?: No Do you have trouble getting transportation to medical appointments?: No Do you have trouble paying your heating and electricity bill?: No Do you have trouble taking care of your child, family member or friend?: No Do you have trouble with day-to-day activities such as bathing, preparing meals, shopping, managing finances, etc.?: No Are you currently unemployed and looking for a job?: No Are you interested in more education?: Yes Please select the resources that you would like help with: None Currently or been in a relationship where the following occur: No concerns reported THRIVE Score: 0 AUDIT C Alcohol Use Questionnaire (AUDIT-C) 1. How often do you have a drink containing alcohol?: Never Total Score: 0 DARIUSZ-7 AMB Questionnaire DARIUSZ-7 Date DARIUSZ - 7 assessed: 05/14/24 Feeling nervous, anxious, or on edge: 1 = Several days Not being able to stop or control worryin = Several days Worrying too much about different things: 0 = Not at all Trouble relaxin = Several days Being so restless that it is hard to sit still: 1 = Several days Becoming easily annoyed or irritable: 1 = Several days Feeling afraid as if something awful might happen: 0 = Not at all Total DARIUSZ-7 score (0-4 normal; 5-9 mild; 10-14 moderate; 15-21 severe): 5 Source: Developed by Drs. Lucas Chang, Fadia Moreau, Richard Reynaga and colleagues, with an educational uma from [employer]. DARIUSZ-7 Assessment Billing DARIUSZ-7 Assessment Tool: DARIUSZ-7 Assessment 21579 Physical exam (Primary Care) Vital Signs: Last Vital Signs Pulse 60 05/14/24 14:02 Resp 14 05/14/24 14:02 BP 138/74 05/14/24 14:02 Pulse Ox 97 05/14/24 14:02 Oxygen Delivery Method Room Air 05/14/24 14:02 BMI result Body Mass Index 37.4 Tobacco/Smoking Status: Tobacco use Status Tobacco use date assessed 04/22/24 05/14/24 14:04 Patient Tobacco Use Status Former Tobacco user 05/14/24 14:04 e-Cigarette/Vaping Use Never Used 05/14/24 14:04 PHQ-9: PHQ-9 Score PHQ-9: Total score 6 05/14/24 14:05 Thrive Assessment: Date of Thrive Assessment Date Thrive assessed 05/14/24 05/14/24 14:04 Currently or been in a relationship where the following occur: No concerns reported Const Orientation/consciousness: patient oriented x3 HENMT Ears: hearing grossly normal bilaterally Neck Thyroid: Thyroid normal Lymphatic: no lymphadenopathy noted Resp Auscultation: clear to auscultation bilaterally Cardio Rate: regular rate Rhythm: regular rhythm Heart sounds: S1 normal heart sound present and S2 normal heart sound present GI Inspection: Yes normal to inspection Palpation (GI): Soft to palpation and Other GI palpation findings present (nontender, no cva tenderness) Auscultation: normoactive bowel sounds Rectal Exam - Female: deferred Skin General skin exam: no rashes or lesions noted Neuro General: patient oriented x3, gait normal and no focal motor deficits Results Reviewed Results Reviewed: Laboratory Tests 04/22/24 10:20 Sodium 138 Potassium 5.0 D Chloride 105 Carbon Dioxide 30 H Anion Gap 8 L BUN 14 Creatinine 0.67 Estimated GFR > 60 Hemoglobin A1c % 5.6 AST 21 ALT 20 Coding Level of Care Code Est Pt Level 4 (65764) Complex EM visit Add On G2211 Diagnoses Difficulty concentrating R41.840 Generalized anxiety disorder F41.1 Additional Codes DARIUSZ-7 Assessment Billing - DARIUSZ-7 Assessment Tool: DARIUSZ-7 Assessment 18148 ([id number]) PHQ-9 - 91143 - PHQ-9 Billing: Yes ([id number]) Assessment & Plan Assessment & Plan (1) Difficulty concentrating: Code(s): R41.840 - Attention and concentration deficit Category: Medical Plan: Phone number provided to the ADD [facility]. Increase Wellbutrin to 300 mg. Reviewed risks and benefits and adverse effects of this medication. (2) Generalized anxiety disorder: Code(s): F41.1 - Generalized anxiety disorder Category: Medical Plan: Reduce Celexa to 20 mg. Follow up short term. Sooner if needed. Patient understands and agrees with the plan. Orders: Orders MM screening mammo BI Today Z12.31 - Encounter for screening mammogram for malignant neoplasm of breast Medications: New bupropion HCl XL (Wellbutrin XL) 300 mg PO QAM 90 tabs 1RF Refilled citalopram 20 mg PO DAILY 90 tabs 0RF Discontinued bupropion HCl XL (Wellbutrin XL) Discontinued Reason: Doctor's Order 150 mg PO QAM 90 tabs 1RF
[2024-05-14 14:02] VITALS: BP 138/74; PULSE 60; RESP 14; O2SAT 97; BMI 37.4
== END 2024-05-14 14:26 | disposition home or self-care (01) ==
PROVIDERS: PCP Physician Assistant; Visit Provider Physician Assistant
DX: R41.840 Attention and concentration deficit (principal); F41.1 Generalized anxiety disorder

== ENCOUNTER → 2024-05-14 13:50 | Outpatient (BNVA) | payer OTHER, SELFPAY | PROVIDERS: PCP Physician Assistant; Visit Provider Physician Assistant | DX: R41.840 Attention and concentration deficit (principal); F41.1 Generalized anxiety disorder; I10 Essential (primary) hypertension; E03.9 Hypothyroidism, unspecified; Z79.899 Other long term (current) drug therapy | CPT/HCPCS: 96127 ==

== ENCOUNTER 2024-05-29 13:53 | Outpatient (REF) | payer OTHER, SELFPAY | END 2024-05-29 13:54 | disposition home or self-care (01) | LOC: HO.MAMMO 13:53 | PROVIDERS: PCP Physician Assistant; Visit Provider Physician Assistant | DX: Z13.89 Encounter for screening for other disorder (principal) ==

== ENCOUNTER 2024-08-19 10:53 | Outpatient (AMB) | payer OTHER, SELFPAY ==
--- NOTE | 2024-08-19 11:02 | A.OFFPC_ITS ---
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 Psych: She did have neuropsych testing which was consistent with ADHD, PTSD, anxiety and depression. She is on wellbutrin, celexa and ritalin. She is following with Dr. Mckeon. - No SI/HI. She is trying to work on he rself and be able to move forward in life with her children and grandchildren. She is going to 5 times a week. CV: Blood pressure today in the office is 108/64. Doing well off of any antihypertensives. Doing well with the atorvastatin 20 mg. Endo: Last TSH was WNL. Levothyroxine doses 50 mcg daily. Mammo-ordered Pap-referred Bone density- UTD- osteopenia Colonoscopy-was referred but never heard [facility] Medical History (Updated 08/19/24 @ 11:26 by Barbara Carver PA-C) Polyarthralgia Family history of colon cancer Thoracic back pain Lumbar pain Generalized anxiety disorder Alcoholism Cataract Heart palpitations Obesity, Class I, BMI 30-34.9 Mitral valve prolapse Hypothyroidism Hyperlipidemia HTN (hypertension) Hand joint pain Hand eczema H/O infectious mononucleosis Fatty liver Fatigue Backache Asthma Anxiety Abnormal glucose level Family History Father Cardiovascular disease Mother Breast cancer Lung cancer Social History (Updated 08/19/24 @ 11:07 by Mary Merritt CMA) Housing: House Alcohol intake: former Comment: quit alcohol 03/23/2023 Patient Tobacco Use Status: Former Tobacco user Cigarette Packs Per Day: 2 Years Smoked: 15 e-Cigarette/Vaping Use: Never Used Substance Use Type: Marijuana service: No Current occupational status: employed 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: No Do you have trouble paying your heating and electricity bill?: No Do you have trouble taking care of your child, family member or friend?: No Do you have trouble with day-to-day activities such as bathing, preparing meals, shopping, managing finances, etc.?: No Are you currently unemployed and looking for a job?: No Are you interested in more education?: Yes Please select the resources that you would like help with: None Currently or been in a relationship where the following occur: No concerns reported THRIVE Score: 0 AUDIT C Alcohol Use Questionnaire (AUDIT-C) 1. How often do you have a drink containing alcohol?: Never (quit 03/23/2023) 3. How often do you have six or more drinks on one occasion?: Never Total Score: 0 DARIUSZ-7 AMB Questionnaire DARIUSZ-7 Date DARIUSZ - 7 assessed: 05/14/24 Source: Developed by Drs. Lucas Chang, Fadia Moreau, Richard Reynaga and colleagues, with an educational uma from [employer]. Physical exam (Primary Care) Vital Signs: Last Vital Signs Pulse 79 08/19/24 11:08 BP 108/64 08/19/24 11:08 Pulse Ox 95 08/19/24 11:08 Oxygen Delivery Method Room Air 08/19/24 11:08 BMI result Body Mass Index 36.0 Tobacco/Smoking Status: Tobacco use Status Tobacco use date assessed 08/19/24 08/19/24 11:12 Patient Tobacco Use Status Former Tobacco user 08/19/24 11:12 e-Cigarette/Vaping Use Never Used 08/19/24 11:12 Thrive Assessment: Date of Thrive Assessment Date Thrive assessed 05/14/24 08/19/24 11:12 Currently or been in a relationship where the following occur: No concerns reported Const Orientation/consciousness: patient oriented x3 HENMT Ears: hearing grossly normal bilaterally Neck Thyroid: Thyroid normal Lymphatic: no lymphadenopathy noted Resp Auscultation: clear to auscultation bilaterally Cardio Rate: regular rate Rhythm: regular rhythm Heart sounds: S1 normal heart sound present and S2 normal heart sound present GI Inspection: Yes normal to inspection Palpation (GI): Soft to palpation and Other GI palpation findings present (nont oleg, no cva tenderness) Auscultation: normoactive bowel sounds Rectal Exam - Female: deferred Skin General skin exam: no rashes or lesions noted Neuro General: patient oriented x3, gait normal and no focal motor deficits Results Reviewed Results Reviewed: Laboratory Tests 04/22/24 10:20 Sodium 138 Potassium 5.0 D Chloride 105 Carbon Dioxide 30 H Anion Gap 8 L BUN 14 Creatinine 0.67 Estimated GFR > 60 Estimat Average Glucose 114 Hemoglobin A1c % 5.6 Calcium 8.8 D Total Bilirubin 0.4 Direct Bilirubin 0.2 AST 21 ALT 20 Alkaline Phosphatase 74 Total Protein 6.6 Albumin 4.0 TSH 1.21 Coding Level of Care Code Est Pt Level 4 (62412) Complex EM visit Add On G2211 Diagnoses Pure hypercholesterolemia E78.00 Hyperlipidemia type: pure hypercholesterolemia Acquired hypothyroidism E03.9 Hypothyroidism type: acquired Generalized anxiety disorder F41.1 ADHD (attention deficit hyperactivity disorder) F90.9 Assessment & Plan Assessment & Plan (1) Hyperlipidemia: Code(s): E78.5 - Hyperlipidemia, unspecified Category: Medical Qualifiers: Hyperlipidemia type: pure hypercholesterolemia Qualified Code(s): E78.00 - Pure hypercholesterolemia, unspecified Plan: On atorvastatin. We will monitor. (2) Hypothyroidism: Code(s): E03.9 - Hypothyroidism, unspecified Category: Medical Qualifiers: Hypothyroidism type: acquired Qualified Code(s): E03.9 - Hypothyroidism, unspecified Plan: TSH ordered. Continue current regimen (3) Generalized anxiety disorder: Code(s): F41.1 - Generalized anxiety disorder Category: Medical Plan: Currently improving with Wellbutrin, citalopram and Ritalin (4) ADHD (attention deficit hyperactivity disorder): Code(s): F90.9 - Attention-deficit hyperactivity disorder, unspecified type Category: Medical Plan: As above Orders: Orders TSH reflex Free T4 08/19/24 E03.9 - Hypothyroidism, unspecified, E78.00 - Pure hypercholesterolemia, unspecified, F41.1 - Generalized anxiety disorder, F90.9 - Attention-deficit hyperactivity disorder, unspecified type Lipid Panel 08/19/24 E03.9 - Hypothyroidism, unspecified, E78.00 - Pure hypercholesterolemia, unspecified, F41.1 - Generalized anxiety disorder, F90.9 - Attention-deficit hyperactivity disorder, unspecified type Complete Blood Count Auto Diff 08/19/24 E03.9 - Hypothyroidism, unspecified, E78.00 - Pure hypercholesterolemia, unspecified, F41.1 - Generalized anxiety disorder, F90.9 - Attention-deficit hyperactivity disorder, unspecified type Comprehensive [place]. Panel Fast 08/19/24 E03.9 - Hypothyroidism, unspecified, E78.00 - Pure hypercholesterolemia, unspecified, F41.1 - Generalized anxiety disorder, F90.9 - Attention-deficit hyperactivity disorder, unspecified type Medications: Changed From citalopram 20 mg PO DAILY 90 tabs 0RF To citalopram 40 mg PO DAILY
[2024-08-19 11:08] VITALS: BP 108/64; PULSE 79; O2SAT 95; BMI 36.0
== END 2024-08-19 11:35 | disposition home or self-care (01) ==
LOC: HO.HMCFM 10:54
PROVIDERS: PCP Physician Assistant; Visit Provider Physician Assistant
DX: E78.00 Pure hypercholesterolemia, unspecified (principal); E03.9 Hypothyroidism, unspecified; F41.1 Generalized anxiety disorder; F90.9 Attention-deficit hyperactivity disorder, unspecified type

== ENCOUNTER → 2024-08-19 10:53 | Outpatient (BNVA) | payer OTHER, SELFPAY | PROVIDERS: PCP Physician Assistant; Visit Provider Physician Assistant | DX: Z13.89 Encounter for screening for other disorder (principal) ==

== ENCOUNTER 2024-08-25 13:43 | Outpatient (REF) | payer OTHER, SELFPAY | END 2024-08-25 13:44 | disposition home or self-care (01) | LOC: HO.MAMMO 13:43 | PROVIDERS: PCP Physician Assistant; Visit Provider Physician Assistant | DX: Z12.31 Encounter for screening mammogram for malignant neoplasm of breast (principal) | CPT/HCPCS: 77063; 77067 ==

== ENCOUNTER → 2024-08-25 14:15 | Outpatient (BNV) | payer OTHER, SELFPAY | PROVIDERS: PCP Physician Assistant; Visit Provider Internal Medicine | DX: Z12.31 Encounter for screening mammogram for malignant neoplasm of breast (principal) | CPT/HCPCS: 77063; 77067 ==

== ENCOUNTER 2025-02-17 08:45 | Outpatient (REF) | payer OTHER, SELFPAY ==
[2025-02-17 11:07] LABS: MANUAL DIFF FLAG NO
[2025-02-17 11:23] LABS: Hematocrit 40.5 % (37.0-47.0); Hemoglobin 13.2 g/dl (12.0-16.0); Imm Gran Abs Auto 0.03 X10*3/uL (0.00-0.03); Imm Gran Pct Auto 0.4 % (0.0-0.4); Lymphocytes Absolute Auto 1.8 X10*3/uL (1.2-4.9); Mean Corpuscular HGB Conc 32.6 g/dl (31.0-35.0); Mean Corpuscular Hemoglobin 29.8 pg (27.0-33.0); Mean Corpuscular Volume 91.4 fL (80.0-98.0); NRBC Abs Auto 0.000 X10*3/uL (0.0-0.012); NRBC Pct Auto 0.0 /100WBC (0.0-0.2); Platelet Count 438 X10*3/uL (160-400); Red Blood Count 4.43 X10*6/uL (4.20-5.50); White Blood Count 7.2 X10*3/uL (4.8-10.8)
[2025-02-17 12:04] LABS: Alanine Aminotransferase 21 U/L (0-31); Albumin Level 4.1 g/dL (3.5-5.0); Alkaline Phosphatase 67 U/L (39-117); Anion Gap 10 (12-20); Aspartate Amino Transferase 19 U/L (5-31); Blood Urea Nitrogen 16 mg/dL (9-16); Calcium 8.8 mg/dL (8.4-10.2); Carbon Dioxide 28 mmol/L (22-29); Chloride 106 mmol/L (96-108); Cholesterol 333 mg/dL (<200); Estimated Glomerular Filt Rate > 60; HDL Cholesterol 60 mg/dL (>40); Potassium 4.2 mmol/L (3.3-5.1); Sodium 140 mmol/L (135-145); Total Protein 6.4 g/dL (6.5-8.0); Triglycerides 112 mg/dL (<150)
[2025-02-17 14:10] LABS: Appearance Urine Clear; Glucose Urine UA Negative (Negative); PH 7.5 (5.0-9.0); Specific Gravity - Urine 1.010 (1.005-1.025)
== END 2025-02-17 08:46 | disposition home or self-care (01) ==
LOC: HO.WFDLDS 08:45
PROVIDERS: Visit Provider Physician Assistant
DX: Z00.00 Encounter for general adult medical examination without abnormal findings (principal); Z13.220 Encounter for screening for lipoid disorders; E03.9 Hypothyroidism, unspecified; E78.00 Pure hypercholesterolemia, unspecified; F41.1 Generalized anxiety disorder; F90.9 Attention-deficit hyperactivity disorder, unspecified type
CPT/HCPCS: 36415; 80053; 80061; 81003; 84443; 85025

== ENCOUNTER 2025-02-24 12:52 | Outpatient (AMB) | payer OTHER, SELFPAY ==
--- NOTE | 2025-02-24 12:55 | MHC.PC.OV ---
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 Allergies diphenhydramine (From Benadryl) Allergy (Severe, Verified 02/24/25 12:57) raised blood pressure Medication List - Last Reconciled 02/24/25 by Barbara Carver PA-C aripiprazole (Abilify) 5 mg PO BEDTIME atorvastatin (Lipitor) 20 mg PO BEDTIME bupropion HCl XL (Wellbutrin XL) 300 mg PO QAM levothyroxine 50 mcg PO DAILY lisinopril 10 mg PO DAILY methylphenidate HCl (Ritalin) 54 mg PO BID sertraline (Zoloft) 50 mg PO DAILY Tobacco use date assessed: 02/24/25 Fall risk assessment: No Falls in past year Last assessed Fall Risk: 02/24/25 Dental Screening Dental Screen Date: 02/24/25 Did you have a dental visit in the last 12 months?: Yes Did you have a dental problem in the last 6 months where you did not have access to dental care?: No Was dental information given to patient?: Patient has dentist HPI 6 mos follow up HPI Details Patient is a 64-year-old female who presents today for a follow up. Psych: She did have neuropsych testing which was consistent with ADHD, PTSD, anxiety and depression. She is on wellbutrin, celexa and ritalin. She is following with Dr. Mckeon. - No SI/HI. She is trying to work on herself and be able to move forward in life with her children and grandchildren. She is going to AA 5 times a week. CV: Blood pressure today in the office is 128/64. On lisinopril 10 mg. stopped atorvastatin to see how lipids would be. Endo: Last TSH was WNL. Levothyroxine doses 50 mcg daily. Mammo-utd, 2024 wnl Pap-booked 03/23/25 Bone density- UTD- osteopenia Colonoscopy-was referred but never heard, sister has colon cancer [facility] Medical History (Updated 02/24/25 @ 13:12 by Barbara Carver PA-C) Polyarthralgia Family history of colon cancer Thoracic back pain Lumbar pain Generalized anxiety disorder Alcoholism Cataract Heart palpitations Obesity, Class I, BMI 30-34.9 Mitral valve prolapse Hypothyroidism Hyperlipidemia HTN (hypertension) Hand joint pain Hand eczema H/O infectious mononucleosis Fatty liver Fatigue Backache Asthma Anxiety Abnormal glucose level Family History Father Cardiovascular disease Mother Breast cancer Lung cancer Social History (Updated 02/24/25 @ 12:59 by Wei Rizo MA) Housing: House Alcohol intake: former Comment: quit alcohol 03/23/2023 Patient Tobacco Use Status: Former Tobacco user Cigarette Packs Per Day: 2 Years Smoked: 15 e-Cigarette/Vaping Use: Never Used Substance Use Type: Marijuana service: No Current occupational status: employed 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) Cognitive needs: No Hearing needs: Yes (hearing is off) Vision needs: No Questionnaire Thrive Questionnaire Date Thrive assessed: 05/14/24 I am a: Patient What is your living situation today?: I have a steady place to live Within the past 12 months, did the food you bought not last and you didn't have the money to get more?: Never true Within the past 12 months, did you worry whether your food would run out before you got money to buy more?: Never true Do you have trouble paying for medicines?: No Do you have trouble getting transportation to medical appointments?: No Do you have trouble paying your heating and electricity bill?: No Do you have trouble taking care of your child, family member or friend?: No Do you have trouble with day-to-day activities such as bathing, preparing meals, shopping, managing finances, etc.?: No Are you currently unemployed and looking for a job?: No Are you interested in more education?: Yes Please select the resources that you would like help with: None Currently or been in a relationship where the following occur: No concerns reported THRIVE Score: 0 AUDIT C Alcohol Use Questionnaire (AUDIT-C) 3. How often do you have six or more drinks on one occasion?: Never Total Score: 0 DARIUSZ-7 AMB Questionnaire DARIUSZ-7 Date DARIUSZ - 7 assessed: 05/14/24 Source: Developed by Drs. Lucas Chang, Fadia Moreau, Richard Reynaga and colleagues, with an educational uma from [employer]. Physical exam (Primary Care) Vital Signs: Last Vital Signs Temp 98.1 F 02/24/25 12:59 Pulse 66 02/24/25 12:59 Resp 16 02/24/25 12:59 BP 128/66 02/24/25 12:59 Pulse Ox 96 02/24/25 12:59 Oxygen Delivery Method Room Air 02/24/25 12:59 BMI result Body Mass Index 34.6 Tobacco/Smoking Status: Tobacco use Status Tobacco use date assessed 02/24/25 02/24/25 13:02 Patient Tobacco Use Status Former Tobacco user 02/24/25 12:59 e-Cigarette/Vaping Use Never Used 02/24/25 12:59 Thrive Assessment: Date of Thrive Assessment Date Thrive assessed 05/14/24 02/24/25 12:55 Currently or been in a relationship where the following occur: No concerns reported Const Orientation/consciousness: patient oriented x3 HENMT Ears: hearing grossly normal bilaterally Neck Thyroid: Thyroid normal Lymphatic: no lymphadenopathy noted Resp Auscultation: clear to auscultation bilaterally Cardio Rate: regular rate Rhythm: regular rhythm Heart sounds: S1 normal heart sound present and S2 normal heart sound present GI Inspection: Yes normal to inspection Palpation (GI): Soft to palpation and Other GI palpation findings present (nontender, no cva tenderness) Auscultation: normoactive bowel sounds Rectal Exam - Female: deferred Skin General skin exam: no rashes or lesions noted Neuro General: patient oriented x3, gait normal and no focal motor deficits Results Reviewed Results Reviewed: Laboratory Tests 04/22/24 02/17/25 02/17/25 10:20 08:48 08:54 WBC 7.2 RBC 4.43 Hgb 13.2 Hct 40.5 Plt Count 438 H Sodium 140 Potassium 4.2 Chloride 106 Carbon Dioxide 28 Anion Gap 10 L BUN 16 Creatinine 0.74 Estimated GFR > 60 Fasting Glucose 97 Hemoglobin A1c % 5.6 AST 19 ALT 21 Alkaline Phosphatase 67 Triglycerides 112 Cholesterol 333 H LDL Cholesterol, Calc 251 H HDL Cholesterol 60 TSH 1.27 Urine Color Yellow Urine Appearance Clear Urine pH 7.5 Ur Specific [place] 1.010 Urine Protein Negative Urine Glucose (UA) Negative Urine Ketones Negative Urine Blood Negative Urine Nitrite Negative Ur Leukocyte Esterase Negative Coding Level of Care Code Est Pt Level 4 (65050) Complex EM visit Add On G2211 Diagnoses Pure hypercholesterolemia E78.00 Hyperlipidemia type: pure hypercholesterolemia Acquired hypothyroidism E03.9 Hypothyroidism type: acquired ADHD (attention deficit hyperactivity disorder) F90.9 HTN (hypertension) I10 Assessment & Plan Assessment & Plan (1) Hyperlipidemia: Code(s): E78.5 - Hyperlipidemia, unspecified Category: Medical Qualifiers: Hyperlipidemia type: pure hypercholesterolemia Qualified Code(s): E78.00 - Pure hypercholesterolemia, unspecified Plan: restart lipitor will recheck lipids in 2 months (2) Hypothyroidism: Code(s): E03.9 - Hypothyroidism, unspecified Category: Medical Qualifiers: Hypothyroidism type: acquired Qualified Code(s): E03.9 - Hypothyroidism, unspecified Plan: last tsh wnl continue levothyroxine (3) ADHD (attention deficit hyperactivity disorder): Code(s): F90.9 - Attention-deficit hyperactivity disorder, unspecified type Category: Medical Plan: tapered off of celexa started on zoloft on abilify recently and doing well increased up to 54 mg of ritalin (4) HTN (hypertension): Code(s): I10 - Essential (primary) hypertension Category: Medical Plan: wnl continue lisinopril Plan reordered ref to GI Orders: Orders Complete Blood Count Auto Diff Today E03.9 - Hypothyroidism, unspecified, E78.00 - Pure hypercholesterolemia, unspecified, F90.9 - Attention-deficit hyperactivity disorder, unspecified type Lipid Panel Today E03.9 - Hypothyroidism, unspecified, E78.00 - Pure hypercholesterolemia, unspecified, F90.9 - Attention-deficit hyperactivity disorder, unspecified type Comprehensive [place]. Panel Fast Today E03.9 - Hypothyroidism, unspecified, E78.00 - Pure hypercholesterolemia, unspecified, F90.9 - Attention-deficit hyperactivity disorder, unspecified type Referrals Gastroenterology Referral Z12.11 - Encounter for screening for malignant neoplasm of colon, Z80.0 - Family history of malignant neoplasm of digestive organs Medications: New atorvastatin (Lipitor) 20 mg PO BEDTIME 90 tabs 2RF
[2025-02-24 12:59] VITALS: BP 128/66; PULSE 66; RESP 16; TEMP 36.7; O2SAT 96; BMI 34.6
== END 2025-02-24 13:32 | disposition home or self-care (01) ==
LOC: HO.HMCFM 12:53
PROVIDERS: PCP Physician Assistant; Visit Provider Physician Assistant
DX: E78.00 Pure hypercholesterolemia, unspecified (principal); E03.9 Hypothyroidism, unspecified; F90.9 Attention-deficit hyperactivity disorder, unspecified type; I10 Essential (primary) hypertension

== ENCOUNTER 2025-03-23 10:45 | Outpatient (AMB) | payer OTHER, SELFPAY ==
[2025-03-23 11:03] VITALS: BP 120/82; BMI 34.5
--- NOTE | 2025-03-23 11:03 | MHC.OFFVIS ---
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 Currently not sexually active, . Denies any vaginal dryness or irritation. Attempting to eat a healthy diet with calcium and vitamin D and stays active with exercise. Last pap smear; unknown years ago at [facility], negative. No records available. Cryotherapy 35+ years ago. Last mammogram; 2024. Colonoscopy is being planned. Family history of breast and colon cancer. [facility] Medical History Polyarthralgia Family history of colon cancer Thoracic back pain Lumbar pain Generalized anxiety disorder Alcoholism Cataract Heart palpitations Obesity, Class I, BMI 30-34.9 Mitral valve prolapse Hypothyroidism Hyperlipidemia HTN (hypertension) Hand joint pain Hand eczema H/O infectious mononucleosis Fatty liver Fatigue Backache Asthma Anxiety Abnormal glucose level Surgical History History of gynecologic surgery H/O eye surgery Family History Father Cardiovascular disease Mother Breast cancer Lung cancer Sister Colon cancer Social History Household Members Other:: Housing: House Alcohol intake: former Comment: quit alcohol 03/23/2023 Patient Tobacco Use Status: Former Tobacco user Cigarette Packs Per Day: 2 Years Smoked: 15 e-Cigarette/Vaping Use: Never Used Substance Use Type: Marijuana service: No Current occupational status: employed 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) Cognitive needs: No Hearing needs: Yes (hearing is off) Vision needs: No Female Reproductive History Menstrual Total pregnancies: 3 Full term: 3 Number of Living Children: 3 History of abnormal pap smear: Yes (hx cryo 35+yrs ago) Date of Mammogram: 08/25/24 (Birad 2) Date of last Bone Density Screenin10/29/23 Review of Systems Const All systems reviewed & are unremarkable except as noted in HPI and below Reports as per HPI Eyes Reports no additional complaints ENT Reports no additional complaints Card Reports no additional complaints Resp Reports no additional complaints GI Reports as per HPI and Reports no additional complaints Reports as per HPI Musc Reports no additional complaints Skin/Breast Reports as per HPI Neuro Reports no additional complaints Psych Reports no additional complaints Endo Reports no additional complaints Juanjo/Lymph Reports no additional complaints Aller/Immun Reports no additional complaints Physical Exam Vital Signs: Last Vital Signs BP 120/82 03/23/25 11:03 BMI result Body Mass Index 34.5 Const General: cooperative, healthy appearing, no acute distress, well developed and alert Orientation/consciousness: patient oriented x3 HEENT Head: Yes normal to inspection Eyes General: appearance normal, both eyes and all related structures Neck Neck: Yes normal visual inspection Thyroid: Thyroid normal Chest Chest palpation & inspection: normal inspection of the chest and other (no puckering, dimpling, peau de orange, retraction, discharge, masses) Breast/axilla inspection: normal inspection of the breasts Breast/axilla palpation: normal palpation of the breasts Resp Effort & Inspection: normal respiratory effort GI Inspection: Yes normal to inspection Palpation (GI): Soft to palpation Rectal Exam - Female: deferred General: Yes bladder normal to palpation External Female Exam: normal external appearance and normal appearance of the urethra Speculum Exam - Vagina: normal appearance of the vagina, normal palpation, normal vaginal discharge and vagina atrophic Speculum Exam - Cervix: normal appearance of the cervix, normal palpation and Other cervical findings present (Atrophic changes, postprocedure appearance, bled slightly with Pap) Bimanual exam- vagina & uterus: normal bimanual exam, normal palpation, uterine size normal, bladder normal to palpation, normal palpation and non-tender Bimanual Exam- Adnexa, other: no masses Skin General skin exam: no rashes or lesions noted Rashes: no rashes Neuro General: patient oriented x3 Cognition (Neuro): normal cognition Extrem General: Yes normal to inspection Psych Attitude: cooperative Thought process: Normal thought process present Assessment & Plan Assessment & Plan (1) Encounter for well woman exam with routine gynecological exam: Code(s): Z01.419 - Encounter for gynecological examination (general) (routine) without abnormal findings Category: Medical Plan: Discussed: Current recommendations for pap smears per ASCCP guidelines. Breast awareness, periodic self breast exams and yearly mammogram. Maintain a healthy lifestyle, well balanced diet including Calcium 1,200 mg and Vitamin D 600 IU daily, and routine exercise. Use of condoms for STI prevention if indicated. Contact the office with any postmenopausal bleeding. Patient verbalizes understanding and agrees to the plan of care. She was given opportunity to ask questions and all questions were answered to the best of my ability. 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 This note is constructed using voice recognition software. While every effort has been made to ensure accuracy, director ambulatory errors may have been included. (2) FH: breast cancer in first degree relative: Code(s): Z80.3 - Family history of malignant neoplasm of breast Category: Medical Plan Discussed: Family history of breast cancer, patient is interested in BRCA testing. Referral placed to breast surgery for consultation. This note is constructed using voice recognition software. While every effort has been made to ensure accuracy, director ambulatory errors may have been included. Orders: Orders HPV High risk Today Z01.419 - Encounter for gynecological examination (general) (routine) without abnormal findings Pap Smear Today Z01.419 - Encounter for gynecological examination (general) (routine) without abnormal findings Referrals Breast Surgery Referral Z80.3 - Family history of malignant neoplasm of breast Coding Level of Care Code New Pt Prev Care 40-64y(46632) Diagnoses Encounter for well woman exam with routine gynecological exam Z01.419 FH: breast cancer in first degree relative Z80.3
== END 2025-03-23 11:34 | disposition home or self-care (01) ==
LOC: HO.HWS 10:45
PROVIDERS: PCP Physician Assistant; Visit Provider Advanced Practice Midwife
DX: Z01.419 Encounter for gynecological examination (general) (routine) without abnormal findings (principal); Z80.3 Family history of malignant neoplasm of breast
CPT/HCPCS: 99386; 99459

== ENCOUNTER 2025-03-23 10:45 | Outpatient (REF) | payer OTHER, SELFPAY | END 2025-03-23 10:46 | disposition home or self-care (01) | LOC: HO.LNP 10:45 | PROVIDERS: PCP Physician Assistant; Visit Provider Advanced Practice Midwife | DX: Z01.419 Encounter for gynecological examination (general) (routine) without abnormal findings (principal); Z11.51 Encounter for screening for human papillomavirus (HPV); Z80.3 Family history of malignant neoplasm of breast | CPT/HCPCS: 87626; 88175 ==

== ENCOUNTER 2025-04-22 09:36 | Outpatient (AMB) | payer OTHER, SELFPAY ==
[2025-04-22 09:38] VITALS: BP 134/76; PULSE 70; RESP 14; O2SAT 97; BMI 34.8
--- NOTE | 2025-04-22 09:38 | MHC.PC.OV ---
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 No complaints today. Psych: She did have neuropsych testing which was consistent with ADHD, PTSD, anxiety and depression. She is on wellbutrin, zoloft, abilify and ritalin. She is following with Dr. Mckeon. - No SI/HI. She is trying to work on herself and be able to move forward in life with her children and grandchildren. She is going to AA 5 times a week. CV: Blood pressure today in the office is 134/76. On lisinopril 10 mg. Restarted atorvastatin due to high LDL. Endo: Last TSH was WNL. Levothyroxine doses 50 mcg daily. Mammo-utd, 2024 wnl Pap-booked UTD 2024 Bone density- UTD- osteopenia Colonoscopy-was referred but never heard, sister has colon cancer- was referred again [facility] Medical History Polyarthralgia Family history of colon cancer Thoracic back pain Lumbar pain Generalized anxiety disorder Alcoholism Cataract Heart palpitations Obesity, Class I, BMI 30-34.9 Mitral valve prolapse Hypothyroidism Hyperlipidemia HTN (hypertension) Hand joint pain Hand eczema H/O infectious mononucleosis Fatty liver Fatigue Backache Asthma Anxiety Abnormal glucose level Surgical History History of gynecologic surgery H/O eye surgery Family History Father Cardiovascular disease Mother Breast cancer Lung cancer Sister Colon cancer Social History (Updated 04/22/25 @ 09:41 by Mary Merritt CMA) Household Members Other:: Housing: House Alcohol intake: former Comment: quit alcohol 03/23/2023 Patient Tobacco Use Status: Former Tobacco user Cigarette Packs Per Day: 2 Years Smoked: 15 e-Cigarette/Vaping Use: Never Used Substance Use Type: Marijuana service: No Current occupational status: employed 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 1. Little interest or pleasure in doing things: not at all 2. Feeling down, depressed, or hopeless: not at all 3. Trouble falling or staying asleep, or sleeping too much: several days 4. Feeling tired or having little energy: several days 5. Poor appetite or overeating: not at all 6. Feeling bad about yourself - or that you are a failure or have let yourself or your family down: not at all 7. Trouble concentrating on things, such as reading the newspaper or watching television: more than half the days 8. Moving or speaking so slowly that other people could have noticed. Or the opposite - being so fidgety or restless that you have been moving around a lot more than usual: several days 9. Thoughts that you would be better off or of hurting yourself in some way: not at all Total score: 5 Depression Screening Interpretation: Positive Depression Screening Done: Yes 88014 - PHQ-9 Billing: Yes Source: Developed by Drs. Lucas Chang, Fadia Moreau, Richard Reynaga and colleagues, with an educational uma from [employer]. Thrive Questionnaire Date Thrive assessed: 04/22/25 I am a: Patient What is your living situation today?: I have a steady place to live Within the past 12 months, did the food you bought not last and you didn't have the money to get more?: Never true Within the past 12 months, did you worry whether your food would run out before you got money to buy more?: Never true Do you have trouble paying for medicines?: No Do you have trouble getting transportation to medical appointments?: No Do you have trouble paying your heating and electricity bill?: No Do you have trouble taking care of your child, family member or friend?: No Do you have trouble with day-to-day activities such as bathing, preparing meals, shopping, managing finances, etc.?: No Are you currently unemployed and looking for a job?: No Are you interested in more education?: Yes Please select the resources that you would like help with: None Currently or been in a relationship where the following occur: No concerns reported THRIVE Score: 0 AUDIT C Alcohol Use Questionnaire (AUDIT-C) 1. How often do you have a drink containing alcohol?: Never 3. How often do you have six or more drinks on one occasion?: Never Total Score: 0 DARIUSZ-7 AMB Questionnaire DARIUSZ-7 Date DARIUSZ - 7 assessed: 04/22/25 Feeling nervous, anxious, or on edge: 1 = Several days Not being able to stop or control worryin = Not at all Worrying too much about different things: 0 = Not at all Trouble relaxin = Several days Being so restless that it is hard to sit still: 1 = Several days Becoming easily annoyed or irritable: 1 = Several days Feeling afraid as if something awful might happen: 0 = Not at all Total DARIUSZ-7 score (0-4 normal; 5-9 mild; 10-14 moderate; 15-21 severe): 4 Source: Developed by Drs. Lucas Chang, Fadia Moreau, Richard Reynaga and colleagues, with an educational uma from [employer]. DARIUSZ-7 Assessment Billing DARIUSZ-7 Assessment Tool: DARIUSZ-7 Assessment 58799 Physical exam (Primary Care) Vital Signs: Last Vital Signs Pulse 70 04/22/25 09:38 Resp 14 04/22/25 09:38 BP 134/76 04/22/25 09:38 Pulse Ox 97 04/22/25 09:38 Oxygen Delivery Method Room Air 04/22/25 09:38 BMI result Body Mass Index 34.8 Tobacco/Smoking Status: Tobacco use Status Tobacco use date assessed 04/22/25 04/22/25 09:45 Patient Tobacco Use Status Former Tobacco user 04/22/25 09:45 e-Cigarette/Vaping Use Never Used 04/22/25 09:45 PHQ-9: PHQ-9 Score PHQ-9: Total score 5 04/22/25 13:27 Depression Screening Interpretation: Positive Thrive Assessment: Date of Thrive Assessment Date Thrive assessed 04/22/25 04/22/25 13:27 Currently or been in a relationship where the following occur: No concerns reported Const Orientation/consciousness: patient oriented x3 HENMT Ears: hearing grossly normal bilaterally and TM's normal bilaterally General nose exam: No nasal polyps present Face and sinus: Yes sinuses nontender Mouth: Normal oral and palatal mucosa present Eyes Pupils: Equal, round and reactive pupils present EOM: EOMs intact bilaterally Neck Neck: Yes full ROM and Yes no lymphadenopathy Thyroid: Thyroid normal Chest Chest palpation & inspection: normal inspection of the chest Resp Auscultation: clear to auscultation bilaterally Cardio Rate: regular rate Rhythm: regular rhythm Heart sounds: S1 normal heart sound present and S2 normal heart sound present Peripheral pulses: Peripheral pulses 2+ throughout GI Other: Soft, nontender Auscultation: normal bowel sounds Rectal Exam - Female: deferred General: Yes no CVA tenderness Back/Spine/Pelvis Other: Nontender Back: no CVA tenderness Skin General skin exam: no rashes or lesions noted Neuro General: patient oriented x3, gait normal, CN's II-XI intact bilaterally and deep tendon reflexes 2+ bilaterally Cranial nerves: Yes Equal, round and reactive pupils present Motor exam (neuro): 5/5 motor strength present throughout Sensory Exam: double simultaneous stimulation for sensation normal Coordination: urysbt-cx-[id number] test normal and Romberg test negative Extrem General: Yes normal to inspection and Yes full ROM Psych Affect: normal affect Attitude: cooperative Thought process: Normal thought process present Thought content: Normal thought content present Insight: Good insight present (Psych) Judgement: Good judgement present (Psych) Coding Level of Care Code Est Pt Prev Care 40-64y(06477) Diagnoses Routine general medical examination at a health care facility Z00.00 HTN (hypertension) I10 Pure hypercholesterolemia E78.00 Hyperlipidemia type: pure hypercholesterolemia Acquired hypothyroidism E03.9 Hypothyroidism type: acquired ADHD (attention deficit hyperactivity disorder) F90.9 Additional Codes DARIUSZ-7 Assessment Billing - DARIUSZ-7 Assessment Tool: DARIUSZ-7 Assessment 67224 ([id number]) PHQ-9 - 52621 - PHQ-9 Billing: Yes ([id number]) Assessment & Plan Assessment & Plan (1) Routine general medical examination at a health care facility: Code(s): Z00.00 - Encounter for general adult medical examination without abnormal findings Plan: hm reviewed advised to let me know if she does not hear from GI (2) HTN (hypertension): Code(s): I10 - Essential (primary) hypertension Category: Medical Plan: wnl continue plan (3) Hyperlipidemia: Code(s): E78.5 - Hyperlipidemia, unspecified Category: Medical Qualifiers: Hyperlipidemia type: pure hypercholesterolemia Qualified Code(s): E78.00 - Pure hypercholesterolemia, unspecified Plan: encouraged complained with lipitor will recheck lipids (4) Hypothyroidism: Code(s): E03.9 - Hypothyroidism, unspecified Category: Medical Qualifiers: Hypothyroidism type: acquired Qualified Code(s): E03.9 - Hypothyroidism, unspecified Plan: will monitor continue levothyroxine (5) ADHD (attention deficit hyperactivity disorder): Code(s): F90.9 - Attention-deficit hyperactivity disorder, unspecified type Category: Medical Plan: well controlled
== END 2025-04-22 10:08 | disposition home or self-care (01) ==
LOC: HO.HMCFM 09:37
PROVIDERS: PCP Physician Assistant; Visit Provider Physician Assistant
DX: Z00.00 Encounter for general adult medical examination without abnormal findings (principal); I10 Essential (primary) hypertension; E78.00 Pure hypercholesterolemia, unspecified; E03.9 Hypothyroidism, unspecified; F90.9 Attention-deficit hyperactivity disorder, unspecified type

== ENCOUNTER → 2025-04-22 09:36 | Outpatient (BNVA) | payer OTHER, SELFPAY | PROVIDERS: PCP Physician Assistant; Visit Provider Physician Assistant | DX: Z00.00 Encounter for general adult medical examination without abnormal findings (principal); F90.9 Attention-deficit hyperactivity disorder, unspecified type; F43.10 Post-traumatic stress disorder, unspecified; F41.9 Anxiety disorder, unspecified; F32.A Depression, unspecified; I10 Essential (primary) hypertension; E78.00 Pure hypercholesterolemia, unspecified; E03.9 Hypothyroidism, unspecified | CPT/HCPCS: 96127 ==